=== PATIENT | male | born 1980 | race Caucasian/White ===

== ENCOUNTER 2016-12-01 17:52 | Emergency (ER) | payer SELFPAY ==
[~2016-12-01 17:52] MED LIST: FLEXERIL10 M1 PO; IBUPROFEN800 MG PO; MEDROL DOSEPAK4 MG PO; ULTRAM PO; VIBRAMYCIN100 M1 PO
[2016-12-01 18:09] LABS: INFLUENZA A NEG (NEG); INFLUENZA B NEG (NEG)
== END 2016-12-01 18:35 | disposition home or self-care (01) ==
LOC: CFTX 17:52
PROVIDERS: Nurse Practitioner
DX: J11.1 Influenza due to unidentified influenza virus with other respiratory manifestations (principal)
CPT/HCPCS: 87804; 99283